=== PATIENT | male | born 1940 | race Caucasian/White ===

== ENCOUNTER 2017-07-13 14:35 | Outpatient (CLI) | payer MEDICARE ==
[2017-07-14 14:54] LABS: Estimated GFR-MDRD - POC Greater than 90
== END 2017-07-13 14:36 | disposition home or self-care (01) ==
LOC: BICMRI 14:35
PROVIDERS: ATTEND Psychiatry & Neurology Neurology
DX: I66.02 Occlusion and stenosis of left middle cerebral artery (principal); I63.9 Cerebral infarction, unspecified; I67.82 Cerebral ischemia
CPT/HCPCS: 70553; 82565